=== PATIENT | female | born 1965 | race Caucasian/White ===

== ENCOUNTER 2020-06-16 16:10 | Observation (INO) ==
[2020-06-16] MEDS ORDERED: Nitroglycerin 0.4 MG TAB.SUBL SL PRN (16:56)
[2020-06-16] MEDS ORDERED: Isovue-370 500 ML BOTTLE IVP ONE ×2 (17:32→17:42)
[2020-06-16] MEDS ORDERED: D5% in Water 1,000 ML IVC PRN (20:08)
[2020-06-16] MEDS ORDERED: Dextrose Gel 15 GM/37.5 ML TUBE PO PRN ×2 (20:08)
[2020-06-16] MEDS ORDERED: *HR* Dextrose 50 % in Water (Vial) 50 ML VIAL IVP PRN (20:08)
[2020-06-16] MEDS ORDERED: Morphine Sulfate 2 MG/ML SYRINGE IVP ONE (20:11)
[2020-06-16] MEDS ORDERED: Acetaminophen 325 MG TABLET PO PRN (20:13)
[2020-06-16] MEDS ORDERED: Naloxone 0.4 MG/ML INJ IVP PRN (20:13)
[2020-06-16] MEDS ORDERED: Perflutren Lipid Microsphere 1.3 ML in 0.9 % Sodium Chloride 8.7 ML IVP PRN (20:13)
[2020-06-16] MEDS ORDERED: Ondansetron 4 MG/2 ML VIAL IVP PRN (20:13)
[2020-06-16] MEDS ORDERED: Aspirin Enteric Coated 325 MG Tablet PO ONE (21:13)
[2020-06-16] MEDS: Insulin LISPRO 300 UNITS/3 ML VIAL SUBQ SCH (21:53)
[2020-06-16] MEDS: *HR* Heparin 5,000 UNIT/ML VIAL SQ SCH (21:55)
[2020-06-16] MEDS: Gabapentin 300 MG CAPSULE PO SCH (21:55)
[2020-06-16] MEDS: Losartan/HCTZ 50-12.5 TABLET PO SCH (21:55)
[2020-06-16] MEDS: Budesonide/Formoterol 160/4.5 1 PUFF INH IH SCH (23:55)
[2020-06-17 02:58] LABS: Hematocrit 43.3 % (35.3-44.9); Hemoglobin 14.8 g/dL (11.5-15.4); Mean Corpuscular HGB Conc 34.2 g/dL (31.6-35.5); Mean Corpuscular Hemoglobin 28.4 pg (28.0-33.3); Mean Corpuscular Volume 83.1 fL (83.0-100.0); Mean Platelet Volume 10.5 fL (9.4-12.4); Platelet Count 315 K/mcL (140-400); Red Blood Count 5.21 M/mcL (3.82-4.97); Red Cell Distribution Width 12.3 % (11.5-14.5); White Blood Count 7.7 K/mcL (4.3-11.1)
[2020-06-17 03:07] LABS: Prothrombin Time 11.5 Seconds (9.4-12.1)
[2020-06-17 03:10] LABS: Activated Partial Thrombo Time 26.8 Seconds (26.0-36.0)
[2020-06-17 03:19] LABS: BUN/Creatinine Ratio 28 (6-26); Blood Urea Nitrogen 18 mg/dL (6-20); Calcium 9.2 mg/dL (8.6-10.3); Carbon Dioxide 30 mEq/L (23-29); Chloride 96 mEq/L (98-107); Glucose 280 mg/dL (70-105); Magnesium 1.7 mg/dL (1.6-2.6); Osmolality,Calculated 292 (280-300); Potassium 3.3 mEq/L (3.5-5.1); Sodium 135 mEq/L (136-145); eGFR For African Americans > 60 (> 60); eGFR For Non-African Americans > 60 (> 60)
[2020-06-17] MEDS ORDERED: Morphine Sulfate 2 MG/ML SYRINGE IVP ONE (03:46)
[2020-06-17] MEDS: *HR* Heparin 5,000 UNIT/ML VIAL SQ SCH ×3 (05:28→20:45)
[2020-06-17] MEDS ORDERED: Regadenoson 0.4 MG/5 ML SYRINGE IVP ONE (06:25)
[2020-06-17] MEDS: Budesonide/Formoterol 160/4.5 1 PUFF INH IH SCH ×2 (07:42→20:19)
[2020-06-17] MEDS: Insulin LISPRO 300 UNITS/3 ML VIAL SUBQ SCH ×4 (08:42→20:44)
[2020-06-17] MEDS ORDERED: GLIMEPIRIDE 1 MG PO SCH (09:00)
[2020-06-17] MEDS ORDERED: *HR* Glimepiride 2 MG TABLET PO SCH (09:00)
[2020-06-17] MEDS: Cholecalciferol (D-3) 1,000 UNIT (25MCG) TABLET PO SCH (11:52)
[2020-06-17] MEDS: Aspirin Enteric Coated 81 MG Tablet PO SCH (11:52)
[2020-06-17] MEDS: Losartan/HCTZ 50-12.5 TABLET PO SCH ×2 (11:52→20:44)
[2020-06-17] MEDS ORDERED: *HR* Glimepiride 4 MG TABLET PO SCH (18:00)
[2020-06-17] MEDS: Gabapentin 300 MG CAPSULE PO SCH (20:44)
[2020-06-17] MEDS: atenoloL 25 MG TABLET PO SCH (20:44)
[2020-06-18 05:20] LABS: Hematocrit 42.4 % (35.3-44.9); Hemoglobin 14.4 g/dL (11.5-15.4); Mean Corpuscular Hemoglobin 28.4 pg (28.0-33.3); Mean Corpuscular Volume 83.6 fL (83.0-100.0); Mean Platelet Volume 10.7 fL (9.4-12.4); Platelet Count 306 K/mcL (140-400); Red Blood Count 5.07 M/mcL (3.82-4.97); Red Cell Distribution Width 12.3 % (11.5-14.5); White Blood Count 6.7 K/mcL (4.3-11.1)
[2020-06-18] MEDS: *HR* Heparin 5,000 UNIT/ML VIAL SQ SCH (05:45)
[2020-06-18 05:54] LABS: BUN/Creatinine Ratio 36 (6-26); Blood Urea Nitrogen 24 mg/dL (6-20); Calcium 9.2 mg/dL (8.6-10.3); Carbon Dioxide 31 mEq/L (23-29); Chloride 96 mEq/L (98-107); Glucose 235 mg/dL (70-105); Osmolality,Calculated 294 (280-300); Potassium 3.3 mEq/L (3.5-5.1); Sodium 136 mEq/L (136-145); eGFR For African Americans > 60 (> 60); eGFR For Non-African Americans > 60 (> 60)
[2020-06-18] MEDS: Cholecalciferol (D-3) 1,000 UNIT (25MCG) TABLET PO SCH (07:48)
[2020-06-18] MEDS: Aspirin Enteric Coated 81 MG Tablet PO SCH (07:48)
[2020-06-18] MEDS: atenoloL 25 MG TABLET PO SCH (07:48)
[2020-06-18] MEDS: Insulin LISPRO 300 UNITS/3 ML VIAL SUBQ SCH (07:49)
[2020-06-18] MEDS: Budesonide/Formoterol 160/4.5 1 PUFF INH IH SCH (08:46)
[2020-06-18] MEDS ORDERED: Insulin LISPRO 300 UNITS/3 ML VIAL SUBQ SCH ×2 (11:30→21:00)
[2020-06-18 11:33] VITALS: BP 118/77
== END 2020-06-18 14:44 | disposition home or self-care (01) ==
LOC: 3BNU 16:10 → EMEROOARM 16:10 → SUATTDRO 19:45 → 3BNU 20:12
PROVIDERS: ADMIT Internal Medicine; ATTEND Nurse Practitioner